=== PATIENT | male | born 1990 ===

== ENCOUNTER 2017-06-22 10:07 | Emergency (ER) | payer SELFPAY ==
[2017-06-22 10:36] VITALS: O2SAT 99
[2017-06-22] MEDS ORDERED: Alum-Mag Hydrox-Simethicone Susp (30 mL) PO STA (11:22)
[2017-06-22] MEDS ORDERED: Morphine 4 mg/ml ISec IVP STA (11:22)
[2017-06-22] MEDS ORDERED: Sodium Chloride 0.9% 500 ML IV STA (11:22)
[2017-06-22] MEDS ORDERED: Atrop/Hyosc/Scopal/PB Elixir (120 ml) PO STA (11:23)
--- NOTE | 2017-06-22 11:30 | ED PDOC ---
Arrival/HPI - General Chief Complaint: Back Pain Time Seen by Provider: 06/22/17 11:22 Historian: Patient - History of Present Illness Narrative History of Present Illness (Text): 06/22/17 11:25 pt p/w + 3 days onset of epigastric pain/radiating to the mid back; at most pain is 10/10; no pain to shoulders; + poor appetite, no fever/chills/sweats, mild deep breath causes epigastric pain, no sob/palpitations, + nausea, no vomiting, no urinary/bowel changes, no fall/trauma/sick contact, no travel; pt denied other complaints; pt is here for further eval. family hx: non-contributory, no immediate family member with 1st Acute CT < 50yrs no immediate family member with life-threatening arrhythmia (requiring pacemaker /defib) Time/Duration: < week Symptom Onset: Sudden Symptom Course: Unchanged Quality: Cramping Severity Level: 10, Severe Activities at Onset: Rest Context: Home Past Medical History - Provider Review Nursing Documentation Reviewed: Yes - Travel History Have you recently traveled outside [place] w/in the past 3 mons?: No - Past History Past History: No Previous - Infectious Disease Hx of Infectious Diseases: None - Psychiatric Hx Substance Use: No - Anesthesia Hx Anesthesia: No Family/Social History - Physician Review Nursing Documentation Reviewed: Yes Family/Social History: No Known Family HX Smoking Status: Unknown If Ever Smoked Hx Alcohol Use: No Hx Substance Use: No Hx Substance Use Treatment: No Allergies/Home Meds Allergies/Adverse Reactions: Allergies No Known Allergies Allergy (Verified 06/22/17 10:36) Review of Systems - Review of Systems Constitutional: Normal Eyes: Normal ENT: Normal Respiratory: Normal Cardiovascular: Normal Gastrointestinal: Abdominal Pain, Nausea. absent: Vomiting Genitourinary Male: Normal Musculoskeletal: Normal Skin: Normal Neurological: Normal Endocrine: Normal Hemo/Lymphatic: Normal Psychiatric: Normal Physical Exam Vital Signs Reviewed: Yes Vital Signs Temp Pulse Resp BP Pulse Ox 06/22/17 13:28 98 F 75 20 127/72 99 06/22/17 10:34 98.5 F 58 L 16 137/64 99 Temperature: Afebrile Blood Pressure: Normal Pulse: Bradycardic Respiratory Rate: Normal Appearance: Positive for: Well-Appearing, Non-Toxic, Other (uncomfortable, mild distress due to pain, alert/awake, GCS = 15, oriented x 3; cooperative, follows command with ease) Pain Distress: None Mental Status: Positive for: Alert and Oriented X 3 - Systems Exam Head: Present: Atraumatic, Normocephalic Pupils: Present: PERRL, Other (no nystagmus, no photophobia, sclera anicteric) Extroacular Muscles: Present: EOMI Conjunctiva: Present: Normal Ears: Present: Normal Mouth: Present: Moist Mucous Membranes, Normal Teeth, Other (uvula/tongue are midline, no exudate/lesions, no drooling/stridor, no lesions noted). No: Dry, Drooling Pharnyx: Present: Normal Nose (External): Present: Atraumatic Nose (Internal): Present: Normal Inspection Neck: Present: Normal Range of Motion, Trachea Midline, Other (no step off, no meningeal signs, no midline tenderness). No: MIDLINE TENDERNESS Respiratory/Chest: Present: Clear to Auscultation, Good Air Exchange, Other ( CTA b/l, no w/r/r, no accessory muscle use noted, no tachypenia) Cardiovascular: Present: Regular Rate and Rhythm, Normal S1, S2. No: Murmurs Abdomen: Present: Normal Bowel Sounds, Other (+ mid abd tenderness; well nourished male, no klein's sign, no mcburney's point tenderness, no masses/ rebound/guarding/rigidity) Back: Present: Normal Inspection, Other (no focal tenderness, no gross deformities, no step off). No: CVA Tenderness, Midline Tenderness Upper Extremity: Present: Normal Inspection, Normal ROM, NORMAL PULSES, Neurovascularly Intact, Capillary Refill < 2s. No: Edema Lower Extremity: Present: Normal Inspection, NORMAL PULSES, Normal ROM, Neurovascularly Intact, Capillary Refill < 2 s, Other (+ ambulatory, neurovasc intact b/l, strength 5/5 grossly intact b/l). No: Evy's Sign Neurological: Present: GCS=15, CN II-XII Intact, Speech Normal, Other (no facial asymmetries, no slurr speech) Skin: Present: Warm, Normal Color, Other (cap refill < 1sec, no ulcerations, no petechiae). No: Rashes Psychiatric: Present: Alert, Oriented x 3 Medical Decision Making ED Course and Treatment: 06/22/17 11:26 Impression: epigastric pain i have consider all the differential diagnosis regarding pt's chief medical complaints/clinical findings, including but are not limited to: likely epigastric pain/gastritis, unlikely cardiac; unlikely biliary colic A/P: epigastric pain - labs - observe - supportive care 06/22/17 1200 pt felt much improved, back pain is gone, epigastric pain ~ 4/10 06/22/17 13:26 pt is made aware of his medical results pt is encouraged bland diet pt is encouraged to avoid caffiene products pt will f/u as directed pt will be discharged home Re-evaluation Time: 12:00 Reassessment Condition: Improved - Lab Interpretations Lab Results: 06/22/17 11:50 06/22/17 11:50 Lab Results 06/22/17 11:50: Sodium 142, Potassium 4.4, Chloride 102, Carbon Dioxide 29, Anion Gap 15, BUN 17, Creatinine 1.0, Est GFR ( Amer) > 60, Est GFR (Non- Af Amer) > 60, Random Glucose 91, Calcium 9.4, Total Bilirubin 0.5, AST 26, ALT 33, Alkaline Phosphatase 69, Total Protein 8.0, Albumin 4.4, Globulin 3.6, Albumin/Globulin Ratio 1.2, Lipase 190 06/22/17 11:50: WBC 5.6, RBC 5.02, Hgb 13.4 L, Hct 42.2, MCV 84.1, MCH 26.7, MCHC 31.8, RDW 12.5, Plt Count 302, MPV 11.4 H, Gran % 57.0, Lymph % (Auto) 33.8 , [place] % (Auto) 6.7 H, Eos % (Auto) 2.3, Baso % (Auto) 0.2, Gran # 3.17, Lymph # (Auto) 1.9, [place] # (Auto) 0.4, Eos # (Auto) 0.1, Baso # (Auto) 0.01 06/22/17 11:30: Urine Color Light yellow, Urine Appearance Clear, Urine pH 8.0, Ur Specific [place] 1.020, Urine Protein Trace H, Urine Glucose (UA) Negative, Urine Ketones Negative, Urine Blood Negative, Urine Nitrate Negative, Urine Bilirubin Negative, Urine Urobilinogen 0.2, Ur Leukocyte Esterase Negative, Urine RBC Negative, Urine WBC Negative, Ur Epithelial Cells 0 - 2, Urine Bacteria Trace I have reviewed the lab results: Yes Interpretation: All labs normal - EKG Interpretation EKG Interpretation (Text): 06/22/17 17:49 Sinus ruperto at 45 bpm, normal axis, no ectopy, no st-t changes, Borderline EKG; no old ekg to compare with Interpreted by ED Physician: Yes Type: 12 lead EKG Comparison: No previous EKG avail. - Medication Orders Current Medication Orders: Discontinued Medications Al Hydrox/Mg Hydrox/Simethicone (Maalox Plus 30 Ml) 30 ml PO STAT STA Stop: 06/22/17 11:23 Last Admin: 06/22/17 11:34 Dose: 30 ml Belladonna/Phenobarbital ( Elixir) 5 ml PO STAT STA Stop: 06/22/17 11:24 Last Admin: 06/22/17 11:51 Dose: 5 ml Famotidine (Pepcid) 20 mg IVP STAT STA Stop: 06/22/17 11:23 Last Admin: 06/22/17 12:00 Dose: 20 mg IVP Administration Document 06/22/17 12:00 GMI (Rec: 06/22/17 11:59 GMI [id number]) Charges for Administration # of IVP Administrations 1 Sodium Chloride (Sodium Chloride 0.9%) 500 mls @ 1,000 mls/hr IV .Q30M STA Stop: 06/22/17 11:51 Last Admin: 06/22/17 11:54 Dose: 1,000 mls/hr eMAR Start Stop Document 06/22/17 11:54 GMI (Rec: 06/22/17 11:54 GMI [id number]) Intravenous Solution Start Date 06/22/17 Start Time 11:54 End Date 06/22/17 End time 13:30 Total Infusion Time 96 Lidocaine HCl (Lidocaine 2% Viscous) 15 ml MM STAT STA Stop: 06/22/17 11:24 Last Admin: 06/22/17 11:52 Dose: 15 ml Morphine Sulfate (Morphine) 4 mg IVP STAT STA Stop: 06/22/17 11:23 Last Admin: 06/22/17 12:01 Dose: 4 mg MAR Pain Assessment Document 06/22/17 12:01 GMI (Rec: 06/22/17 12:01 [facility] [id number]) Pain Reassessment Is this a pain reassessment? Yes Sleep Is patient sleeping during reassessment? No Presence of Pain Presence of Pain Yes Location Upper or Lower Upper Pain Location Body Site Back Description Description Burning Intensity of Pain at present 5 Pain Behavior Facial Grimacing IVP Administration Document 06/22/17 12:01 GM (Rec: 06/22/17 12:01 [id number] Charges for Administration # of IVP Administrations 1 Re-Assess: MAR Pain Assessment Document 06/22/17 13:01 GM (Rec: 06/22/17 13:30 [id number] Pain Reassessment Is this a pain reassessment? Yes Sleep Is patient sleeping during reassessment? No Presence of Pain Presence of Pain No Disposition/Present on Arrival - Present on Arrival Any Indicators Present on Arrival: No History of DVT/PE: No History of Uncontrolled Diabetes: No Urinary Catheter: No History of Decub. Ulcer: No History Surgical Site Infection Following: None - Disposition Have Diagnosis and Disposition been Completed?: Yes Diagnosis: Epigastric abdominal pain Disposition: HOME/ ROUTINE Disposition Time: 13:19 Patient Plan: Discharge Condition: STABLE Discharge Instructions (ExitCare): Gastritis, [place] Diet Print Language: SLOVEN[place] Additional Instructions: Make sure to see your doctor in 1-2 days DRINK PLENTY OF FLUIDS BLAND DIET is encouraged avoid caffiene products take your medications as prescribed RETURN TO ED IF worse pain, cant breath, persistent vomiting, high fever >101- 102 for hours, altered behavior, unable to urinate, heavy/persistent bleeding, passing out, chest pain, or other medical emergencies Prescriptions: Aluminum Hydroxide/Magnesium H [Maalox 30 ml] 30 ml PO QID PRN #1 bottle PRN Reason: Pain, Moderate (4-7) Famotidine [Pepcid] 20 mg PO BID #30 tab Lidocaine 2% Viscous 10 ml MM TID PRN #1 bottle PRN Reason: Pain, Mild (1-3) Referrals: PCP,NO [Primary Care Provider] - Follow up with primary Lucas Rene MD [Staff Provider] - Follow up with primary Forms: [employer] (Korean)
[2017-06-22 11:52] LABS: URINE BILIRUBIN NEGATIVE (NEGATIVE); URINE BLOOD NEGATIVE (NEGATIVE); URINE GLUCOSE (UA) NEGATIVE (NEGATIVE); URINE LEUKOCYTE ESTERASE NEGATIVE Leu/uL (NEGATIVE); URINE NITRATE NEGATIVE (NEGATIVE); URINE PROTEIN TRACE mg/dL (<30 mg/dL); URINE UROBILINOGEN 0.2 E.U./dL (<1 E.U./dL)
[2017-06-22 11:55] LABS: URINE APPEARANCE CLEAR (CLEAR); URINE COLOR LIGHT YELLOW (YELLOW)
[2017-06-22 12:18] LABS: ALB/GLOB RATIO 1.2 (1.1-1.8); ALBUMIN 4.4 g/dL (3.0-4.8); ALT/SGPT 33 U/L (7-56); AST/SGOT 26 U/L (17-59); BLOOD UREA NITROGEN 17 mg/dL (7-21); CALCIUM 9.4 mg/dL (8.4-10.5); GFR AFRICAN-AMERICAN > 60; GFR NON-AFRICAN AMERICAN > 60; LIPASE 190 U/L (23-300)
[2017-06-22 12:34] LABS: BASO # 0.01 K/mm3 (0.0-2.0); BASO % 0.2 % (0.0-3.0); EOS # 0.1 (0.0-0.7); EOS % 2.3 % (1.5-5.0); GRAN # 3.17 (1.4-6.5); HEMOGLOBIN 13.4 g/dL (14.0-18.0); LYMPH # 1.9 (1.2-3.4); LYMPH % 33.8 % (22.0-35.0); MEAN CELL VOLUME 84.1 fl (80.0-105.0); MEAN CORPUSCULAR HEMOGLOBIN 26.7 pg (25.0-35.0); MEAN CORPUSCULAR HGB CONC 31.8 g/dl (31.0-37.0); MEAN PLATELET VOLUME 11.4 fl (7.0-11.0); MONO # 0.4 (0.1-0.6); MONO % 6.7 % (1.0-6.0); RBC 5.02 10^6/uL (3.5-6.1); RED CELL DISTRIBUTION WIDTH 12.5 % (11.5-14.5); WHITE BLOOD COUNT 5.6 10^3/ul (4.5-11.0)
[2017-06-22 13:18] LABS: URINE BACTERIA TRACE (NEG); URINE EPITHELIAL CELLS 0 - 2 /hpf (0-5); URINE RBC NEGATIVE /hpf (0-2); URINE WBC NEGATIVE /hpf (0-6)
[2017-06-22 13:30] VITALS: BP 127/72; PULSE 75; RESP 20; TEMP 98
--- NOTE | 2017-06-23 08:18 | CARD ---
APPROVED REPORT EKG Measurement Heart [id number] <Conclusion> Marked sinus bradycardia Rightward axis
== END 2017-06-22 13:39 | disposition home or self-care (01) ==
LOC: ED 10:07
DX: R10.13 Epigastric pain (principal)
CPT/HCPCS: 80053; 81001; 83690; 85025; 93005; 96361; 96374; 96375; 99285; J2270; J7040

== ENCOUNTER 2017-06-23 00:40 | Emergency (ER) | payer SELFPAY ==
[2017-06-23 00:58] VITALS: BMI 19.3
[2017-06-23 01:12] VITALS: RESP 18; TEMP 97.9; O2SAT 100
[2017-06-23] MEDS ORDERED: Sodium Chloride 0.9% 1,000 ML IV STA (01:20)
--- NOTE | 2017-06-23 01:34 | ED PDOC ---
Arrival/HPI - General Chief Complaint: Abdominal Pain Time Seen by Provider: 06/23/17 01:02 Historian: Patient - History of Present Illness Narrative History of Present Illness (Text): 06/23/17 01:12 26 year old male, with no significant past medical history, presents to the emergency department complaining of epigastric abdominal pain radiating to the back for the past couple of days. Patient was seen yesterday in the ER treated and discharged. Patient states medication was given and not working. Patient reports occasional nausea, but denies any fever, chills, chest pain, shortness of breath, vomiting, diarrhea, urinary symptoms, neck pain, headache, dizziness , or any other complaints. Time/Duration: Other (few days) Symptom Onset: Gradual Symptom Course: Unchanged Activities at Onset: Light Context: Home Past Medical History - Provider Review Nursing Documentation Reviewed: Yes - Past History Past History: No Previous - Infectious Disease Hx of Infectious Diseases: None - Psychiatric Hx Substance Use: No - Anesthesia Hx Anesthesia: No Hx Anesthesia Reactions: No Hx Malignant Hyperthermia: No Family/Social History - Physician Review Nursing Documentation Reviewed: Yes Family/Social History: No Known Family HX Smoking Status: Unknown If Ever Smoked Hx Alcohol Use: No Hx Substance Use: No Hx Substance Use Treatment: No Allergies/Home Meds Allergies/Adverse Reactions: Allergies No Known Allergies Allergy (Verified 06/23/17 00:58) Review of Systems - Physician Review All systems were reviewed & negative as marked: Yes - Review of Systems Constitutional: absent: Fevers, Other (Chills) Respiratory: absent: SOB Cardiovascular: absent: Chest Pain Gastrointestinal: Abdominal Pain (epigastric pain), Nausea. absent: Diarrhea, Vomiting Genitourinary Male: absent: Dysuria, Frequency, Hematuria Musculoskeletal: Back Pain. absent: Neck Pain Neurological: absent: Headache, Dizziness Physical Exam Vital Signs Reviewed: Yes Vital Signs Temp Pulse Resp BP Pulse Ox 06/23/17 01:12 97.9 F 62 18 110/73 100 Temperature: Afebrile Blood Pressure: Normal Pulse: Regular Respiratory Rate: Normal Appearance: Positive for: Well-Appearing, Non-Toxic, Comfortable Pain Distress: None Mental Status: Positive for: Alert and Oriented X 3 - Systems Exam Head: Present: Atraumatic, Normocephalic Pupils: Present: PERRL Extroacular Muscles: Present: EOMI Conjunctiva: Present: Normal Mouth: Present: Moist Mucous Membranes Neck: Present: Normal Range of Motion Respiratory/Chest: Present: Clear to Auscultation, Good Air Exchange. No: Respiratory Distress, Accessory Muscle Use Cardiovascular: Present: Regular Rate and Rhythm, Normal S1, S2. No: Murmurs Abdomen: Present: Tenderness (Abdominal epigastric tenderness on palpation), Normal Bowel Sounds. No: Distention, Peritoneal Signs, Rebound, Guarding Back: Present: Normal Inspection Upper Extremity: Present: Normal Inspection. No: Cyanosis, Edema Lower Extremity: Present: Normal Inspection. No: Edema Neurological: Present: GCS=15, CN II-XII Intact, Speech Normal Skin: Present: Warm, Dry, Normal Color. No: Rashes Psychiatric: Present: Alert, Oriented x 3, Normal Insight, Normal Concentration Medical Decision Making ED Course and Treatment: 06/23/17 01:12 Impression: 26 year old male presents complaining of epigastric abdominal pain radiating to the back. Patient reports occasional nausea. Plan: -- EKG -- Labs -- Chest X-ray -- Urinalysis, Urinalysis w/ Micro -- Pepcid, IV Fluids, Toradol -- Reassess and disposition Prior Visits: Notes and results from previous visits were reviewed. Patient was last seen in the emergency department on 06/22/17 presents complaining of 3 days onset of epigastric pain radiating to the mid back. Patient was discharged. Progress Notes: 06/23/17 01:56 EKG shows Sinus Bradycardia at 57 BPM with no acute changes. Interpreted by me. 06/23/17 02:18 CXR Impression: As read by me, no acute processes. 06/23/17 04:12 On re-evaluation, patient reports symptomatic relief following treatment in Emergency room. Patient feels better and is in no acute distress. I have discussed the results and plan with the patient, who expresses understanding. Patient in agreement with plan to be discharged home. Patient is stable for discharge. Patient was instructed to follow up with physician or return if symptoms worsen or new concerning symptoms arise. - Lab Interpretations Lab Results: 06/23/17 01:45 06/23/17 01:35 Lab Results 06/23/17 01:56: Urine Color Yellow, Urine Appearance Clear, Urine pH 6.0, Ur Specific [place] >= 1.030, Urine Protein Trace H, Urine Glucose (UA) Negative, Urine Ketones 15 H, Urine Blood Negative, Urine Nitrate Negative, Urine Bilirubin Negative, Urine Urobilinogen 0.2, Ur Leukocyte Esterase Negative, Urine RBC 0 - 2, Urine WBC 0 - 2, Ur Epithelial Cells 0 - 2, Urine Bacteria Few 06/23/17 01:45: WBC 6.1, RBC 4.71, Hgb 12.7 L, Hct 39.2 L, MCV 83.2, MCH 27.0, MCHC 32.4, RDW 12.3, Plt Count 267, MPV 11.2 H 06/23/17 01:35: WBC Cancelled, RBC Cancelled, Hgb Cancelled, Hct Cancelled, MCV Cancelled, MCH Cancelled, MCHC Cancelled, RDW Cancelled, Plt Count Cancelled, MPV Cancelled 06/23/17 01:35: Sodium 143, Potassium 4.8, Chloride 103, Carbon Dioxide 27, Anion Gap 17, BUN 17, Creatinine 1.2, Est GFR ( Amer) > 60, Est GFR (Non- Af Amer) > 60, Random Glucose 93, Calcium 10.1, Total Bilirubin 0.7, AST 26, ALT 43, Alkaline Phosphatase 78, Lactate Dehydrogenase 472, Total Creatine Kinase 155, Troponin I < 0.01, Total Protein 7.7, Albumin 4.2, Globulin 3.5, Albumin/Globulin Ratio 1.2, Lipase 151 06/23/17 01:35: PT 12.3, INR 1.08, APTT 33.3 I have reviewed the lab results: Yes - RAD Interpretation Radiology Orders: 06/23/17 01:19 CHEST PORTABLE [RAD] Stat - EKG Interpretation Interpreted by ED Physician: Yes Type: 12 lead EKG - Medication Orders Current Medication Orders: Discontinued Medications Famotidine (Pepcid) 20 mg IVP STAT STA Stop: 06/23/17 01:21 Last Admin: 06/23/17 01:42 Dose: 20 mg IVP Administration Document 06/23/17 01:42 AD (Rec: 06/23/17 01:42 AD [id number]) Charges for Administration # of IVP Administrations 1 Sodium Chloride (Sodium Chloride 0.9%) 1,000 mls @ 999 mls/hr IV .Q1H1M STA Stop: 06/23/17 02:20 Last Admin: 06/23/17 01:42 Dose: 999 mls/hr eMAR Start Stop Document 06/23/17 01:42 AD (Rec: 06/23/17 01:42 AD [id number]) Intravenous Solution Start Date 06/23/17 Start Time 01:42 Ketorolac Tromethamine (Toradol) 30 mg IVP ONCE ONE Stop: 06/23/17 01:21 Last Admin: 06/23/17 01:41 Dose: 30 mg MAR Pain Assessment Document 06/23/17 01:41 AD (Rec: 06/23/17 01:42 AD [id number]) Pain Reassessment Is this a pain reassessment? No Presence of Pain Presence of Pain Yes Pain Scale Used Pain Scale Used Numeric Description Intensity of Pain at present 10 Pain Behavior Facial Grimacing IVP Administration Document 06/23/17 01:41 AD (Rec: 06/23/17 01:42 AD [id number]) Charges for Administration # of IVP Administrations 1 Morphine Sulfate (Morphine) 4 mg IVP STAT STA Stop: 06/23/17 02:20 Last Admin: 06/23/17 02:30 Dose: 4 mg MAR Pain Assessment Document 06/23/17 02:30 AD (Rec: 06/23/17 02:42 AD [id number]) Pain Reassessment Is this a pain reassessment? No Presence of Pain Presence of Pain Yes Pain Scale Used Pain Scale Used Numeric Description Intensity of Pain at present 8 Pain Behavior Facial Grimacing Alleviating Factors/Management Exercise Techniques IVP Administration Document 06/23/17 02:30 AD (Rec: 06/23/17 02:42 AD [id number]) Charges for Administration # of IVP Administrations 1 - Scribe Statement The provider has reviewed the documentation as recorded by the Perla Alfaro Provider Scribe Attestation: All medical record entries made by the Scribduyen were at my direction and personally dictated by me. I have reviewed the chart and agree that the record accurately reflects my personal performance of the history, physical exam, medical decision making, and the department course for this patient. I have also personally directed, reviewed, and agree with the discharge instructions and disposition. Disposition/Present on Arrival - Present on Arrival Any Indicators Present on Arrival: No History of DVT/PE: No History of Uncontrolled Diabetes: No Urinary Catheter: No History of Decub. Ulcer: No History Surgical Site Infection Following: None - Disposition Have Diagnosis and Disposition been Completed?: Yes Diagnosis: Gastritis Disposition: HOME/ ROUTINE Disposition Time: 04:06 Patient Plan: Discharge Patient Problems: Current Active Problems Problem Status Onset Gastritis Acute Condition: GOOD Discharge Instructions (ExitCare): Gastritis Additional Instructions: Avoid caffeinated beverages/spicy foods/alcohol./Take meds as prescribed/follow up with your doctor this week Prescriptions: Phenobarb/Hyoscy/Atropine/Scop [ Tablet] 16.2 mg PO Q6 PRN #12 tablet PRN Reason: Dyspepsia traMADol/Acetaminophen [Ultracet 325 MG-37.5 MG] 1 tab PO Q6 PRN #10 tab PRN Reason: Pain Referrals: PCP,NO [Primary Care Provider] - Follow up with primary Forms: [employer] ([place])
[2017-06-23 02:01] LABS: ALB/GLOB RATIO 1.2 (1.1-1.8); ALBUMIN 4.2 g/dL (3.0-4.8); ALT/SGPT 43 U/L (7-56); AST/SGOT 26 U/L (17-59); BLOOD UREA NITROGEN 17 mg/dL (7-21); CALCIUM 10.1 mg/dL (8.4-10.5); GFR AFRICAN-AMERICAN > 60; GFR NON-AFRICAN AMERICAN > 60; LIPASE 151 U/L (23-300)
[2017-06-23 02:06] LABS: TROPONIN I < 0.01 ng/mL
[2017-06-23 02:08] LABS: INR 1.08 (0.93-1.08); PROTHROMBIN TIME 12.3 SECONDS (9.4-12.5)
[2017-06-23 02:09] LABS: PARTIAL THROMBOPLASTIN TIME 33.3 Seconds (25.1-36.5)
[2017-06-23 02:12] LABS: URINE BILIRUBIN NEGATIVE (NEGATIVE); URINE BLOOD NEGATIVE (NEGATIVE); URINE GLUCOSE (UA) NEGATIVE (NEGATIVE); URINE LEUKOCYTE ESTERASE NEGATIVE Leu/uL (NEGATIVE); URINE NITRATE NEGATIVE (NEGATIVE); URINE PROTEIN TRACE mg/dL (<30 mg/dL); URINE UROBILINOGEN 0.2 E.U./dL (<1 E.U./dL)
[2017-06-23 02:14] LABS: URINE APPEARANCE CLEAR (CLEAR); URINE COLOR YELLOW (YELLOW)
[2017-06-23] MEDS ORDERED: Morphine 4 mg/ml ISec IVP STA (02:19)
[2017-06-23 02:23] LABS: URINE BACTERIA FEW (NEG); URINE EPITHELIAL CELLS 0 - 2 /hpf (0-5); URINE RBC 0 - 2 /hpf (0-2); URINE WBC 0 - 2 /hpf (0-6)
[2017-06-23 03:12] LABS: HEMOGLOBIN 12.7 g/dL (14.0-18.0); MEAN CELL VOLUME 83.2 fl (80.0-105.0); MEAN CORPUSCULAR HGB CONC 32.4 g/dl (31.0-37.0); RBC 4.71 10^6/uL (3.5-6.1); RED CELL DISTRIBUTION WIDTH 12.3 % (11.5-14.5); WHITE BLOOD COUNT 6.1 10^3/ul (4.5-11.0)
[2017-06-23 03:13] LABS: MEAN PLATELET VOLUME 11.2 fl (7.0-11.0)
[2017-06-23 04:25] VITALS: BP 115/82; PULSE 61
--- NOTE | 2017-06-23 08:29 | CARD ---
APPROVED REPORT EKG Measurement Heart [id number] <Conclusion> Sinus bradycardia Rightward axis PRWP No change
--- NOTE | 2017-06-23 09:05 | RAD ---
HISTORY: epigastric pain COMPARISON: No prior. FINDINGS: LUNGS: No active pulmonary disease. PLEURA: No significant pleural effusion identified, no pneumothorax apparent. CARDIOVASCULAR: Normal. OSSEOUS STRUCTURES: No significant abnormalities. VISUALIZED UPPER ABDOMEN: Normal. OTHER FINDINGS: None. IMPRESSION: No active disease.
== END 2017-06-23 04:27 | disposition home or self-care (01) ==
LOC: ED 00:40
DX: K29.70 Gastritis, unspecified, without bleeding (principal)
CPT/HCPCS: 71045; 80053; 81001; 82550; 83615; 83690; 84484; 85027; 85610; 85730; 93005; 96374; 96375; 99284; J1885; J2270; J7040